=== PATIENT | female | born 1955 | race Caucasian/White ===

== ENCOUNTER 2018-05-11 06:38 | Day surgery (SDC) | payer MEDICAID ==
[2018-05-11] VITALS (8 sets, daily range): BP systolic 110–139; BP diastolic 52–78
[~2018-05-11] VITALS: Ht 160 cm; Wt 69.4 kg
[~2018-05-11 06:38] MED LIST: LIDOcaine 1% 30ml preserv. free vial SQ STA
[2018-05-11] MEDS ORDERED: HYDR-4383 PO (07:43)
[2018-05-11] MEDS ORDERED: FAMO20TA8 PO (07:43)
[2018-05-11] MEDS ORDERED: PROC5TAB56 PO (07:43)
[2018-05-11] MEDS ORDERED: CLON-528 PO (07:43)
[2018-05-11] MEDS ORDERED: ALLO100T PO (07:43)
[2018-05-11] MEDS ORDERED: GABA-532 PO (07:43)
[2018-05-11] MEDS ORDERED: PSYL0.4C2 (07:43)
[2018-05-11] MEDS ORDERED: ONDA4TAB6 PO (07:43)
[2018-05-11 10:34] LABS: LYMPHOCYTES,BODY FLUID 88 %; MONOCYTES,BODY FLUID 3 %; NEUTROPHILS,BODY FLUID 9 %
[2018-05-11 10:36] LABS: BFAPPEAR TURBID
[2018-05-11 10:37] LABS: BF RBC COUNT 7400 /CU MM; BF WBC COUNT 1250 /CU MM (0-1000); BFCOLOR OTHER; BFVOLUME 45 ML
[2018-05-11 10:39] LABS: BF UNCLASSIFIED CELLS FEW
== END 2018-05-11 10:15 | disposition home or self-care (01) ==
LOC: SSTAY O 06:38
PROVIDERS: ATTEND Radiology Vascular & Interventional Radiology
DX: J90 Pleural effusion, not elsewhere classified (principal); Z88.1 Allergy status to other antibiotic agents; Z88.8 Allergy status to other drugs, medicaments and biological substances
CPT/HCPCS: 32555; 71045; 87070; 89051; J3490

== ENCOUNTER 2018-05-18 08:01 | Day surgery (SDC) | payer MEDICAID ==
[~2018-05-18] VITALS: Ht 160 cm; Wt 67.3 kg
[~2018-05-18 08:01] MED LIST changes: +ALLO100T PO; +CLON-528 PO; +FAMO20TA8 PO; +GABA-532 PO; +HYDR-4383 PO; +ONDA4TAB6 PO; +PROC5TAB56 PO; +PSYL0.4C2
[2018-05-18 08:45] VITALS: BP 99/51
[2018-05-18 09:00] VITALS: BP 105/59
[2018-05-18 09:05] VITALS: BP 97/69
[2018-05-18 09:10] VITALS: BP 130/86
[2018-05-18 09:15] VITALS: BP 98/50
[2018-05-18 09:30] VITALS: BP 96/49
== END 2018-05-18 09:35 | disposition home or self-care (01) ==
LOC: SSTAY O 08:01
PROVIDERS: ATTEND Radiology Diagnostic Radiology
DX: J90 Pleural effusion, not elsewhere classified (principal); Z98.51 Tubal ligation status; Z98.890 Other specified postprocedural states; Z88.2 Allergy status to sulfonamides; Z88.8 Allergy status to other drugs, medicaments and biological substances; Z79.899 Other long term (current) drug therapy
CPT/HCPCS: 32555; 71045; C1729; J3490

== ENCOUNTER 2018-05-26 06:43 | Day surgery (SDC) | payer MEDICAID ==
[~2018-05-26] VITALS: Ht 160 cm; Wt 69.1 kg
[2018-05-26] VITALS (8 sets, daily range): BP systolic 98–119; BP diastolic 60–65
[~2018-05-26 06:43] MED LIST changes: -ALLO100T PO; -GABA-532 PO; -LIDOcaine 1% 30ml preserv. free vial SQ STA; -ONDA4TAB6 PO; -PROC5TAB56 PO; -PSYL0.4C2
[2018-05-26] MEDS ORDERED: normal saline 1000ml 1,000 ML IV PRN (07:10)
[2018-05-26] MEDS ORDERED: LIDOcaine 1% 30ml preserv. free vial SQ ONE (08:30)
== END 2018-05-26 09:35 | disposition home or self-care (01) ==
LOC: SSTAY O 06:43
PROVIDERS: ATTEND Radiology Diagnostic Radiology
DX: J90 Pleural effusion, not elsewhere classified (principal); Z98.51 Tubal ligation status; Z98.890 Other specified postprocedural states; Z88.8 Allergy status to other drugs, medicaments and biological substances; Z88.2 Allergy status to sulfonamides; Z79.899 Other long term (current) drug therapy
CPT/HCPCS: 32555; 71045; C1729; J3490; J7030

== ENCOUNTER 2018-06-22 07:08 | Day surgery (SDC) | payer MEDICAID ==
[2018-06-22] VITALS (11 sets, daily range): BP systolic 88–114; BP diastolic 42–66
[~2018-06-22] VITALS: Ht 162.6 cm; Wt 63.5 kg
[~2018-06-22 07:08] MED LIST changes: +LIDOcaine 1% 30ml preserv. free vial SQ STA
== END 2018-06-22 08:55 | disposition home or self-care (01) ==
LOC: SSTAY O 07:08
PROVIDERS: ATTEND Radiology Diagnostic Radiology
DX: J90 Pleural effusion, not elsewhere classified (principal); Z98.51 Tubal ligation status; Z98.890 Other specified postprocedural states; Z88.2 Allergy status to sulfonamides; Z88.8 Allergy status to other drugs, medicaments and biological substances; Z79.899 Other long term (current) drug therapy
CPT/HCPCS: 32555; 71045; C1729; J3490

== ENCOUNTER 2018-06-30 08:22 | Day surgery (SDC) | payer MEDICAID ==
[~2018-06-30] VITALS: Ht 162.6 cm; Wt 66.2 kg
[~2018-06-30 08:22] MED LIST changes: -LIDOcaine 1% 30ml preserv. free vial SQ STA
[2018-06-30 08:41] VITALS: BP 141/73
[2018-06-30] MEDS ORDERED: FLUO10CA30 PO (08:41)
[2018-06-30] MEDS ORDERED: ALLO300T8 PO (08:41)
[2018-06-30] MEDS ORDERED: LIDOcaine 1% 30ml preserv. free vial SQ ONE (09:30)
[2018-06-30 10:00] VITALS: BP 122/80
== END 2018-06-30 10:00 | disposition home or self-care (01) ==
LOC: SSTAY O 08:22
PROVIDERS: ATTEND Radiology Diagnostic Radiology
DX: J90 Pleural effusion, not elsewhere classified (principal); Z79.891 Long term (current) use of opiate analgesic; Z79.899 Other long term (current) drug therapy; Z85.72 Personal history of non-Hodgkin lymphomas; Z98.51 Tubal ligation status; Z98.890 Other specified postprocedural states; Z88.8 Allergy status to other drugs, medicaments and biological substances; Z88.2 Allergy status to sulfonamides
CPT/HCPCS: 32555; 71045; C1729; J3490

== ENCOUNTER 2018-07-07 07:38 | Day surgery (SDC) | payer MEDICAID ==
[~2018-07-07] VITALS: Ht 162.6 cm; Wt 64.8 kg
[~2018-07-07 07:38] MED LIST changes: +ALLO300T8 PO; +FLUO10CA30 PO
[2018-07-07 07:59] VITALS: BP 135/65
[2018-07-07] MEDS ORDERED: LIDOcaine 1% 30ml preserv. free vial SQ ONE (09:00)
[2018-07-07 09:15] VITALS: BP 135/65
[2018-07-07 09:32] VITALS: BP 118/69
== END 2018-07-07 09:50 | disposition home or self-care (01) ==
LOC: SSTAY O 07:38
PROVIDERS: ATTEND Radiology Vascular & Interventional Radiology
DX: J90 Pleural effusion, not elsewhere classified (principal); Z98.51 Tubal ligation status; Z98.890 Other specified postprocedural states; Z88.2 Allergy status to sulfonamides; Z79.899 Other long term (current) drug therapy; Z85.72 Personal history of non-Hodgkin lymphomas
CPT/HCPCS: 32555; 71045; C1729; J3490